=== PATIENT | male | born 1990 | race Caucasian/White ===

== ENCOUNTER 2020-02-14 12:40 | Outpatient (CLI) | payer BC, SELFPAY ==
[2020-02-14 13:39] LABS: Basophils % 0.4 %; Eosinophils % 0.7 %; Hematocrit 43.4 % (42.0-52.0); Hemoglobin 14.5 g/dL (11.7-16.6); Lymphocytes # 1.7 10^3/uL (0.8-4.8); Lymphocytes % 30.1 %; Mean Corpuscular HGB Conc 33.4 g/dL (30.0-36.0); Mean Corpuscular Hemoglobin 31.7 pg (28.0-34.0); Mean Platelet Volume 9.8 fL (7.4-10.4); Monocytes # 0.3 10^3/uL (0.2-0.9); Monocytes % 5.4 %; Neutrophils # 3.52 10^3/uL (1.8-7.7); Neutrophils % 62.9 %; Nucleated Red Blood Cells % 0 %; Platelet Count 214 10^3/cmm (130-400); Red Blood Count 4.57 10^6/uL (4.1-5.3); Red Cell Distribution Width 12.3 % (12.1-15.1); White Blood Count 5.6 10^3/uL (4.0-10.0)
[2020-02-14 14:08] LABS: Alanine Aminotransferase 61 U/L (0-41); Albumin Level 4.4 g/dL (3.5-5.2); Alkaline Phosphatase 66 IU/L (40-130); Anion Gap 16.1 (5-19); Aspartate Amino Transferase 33 U/L (0-40); Blood Urea Nitrogen 11 mg/dL (6-20); Calcium 9.7 mg/dL (8.5-10.5); Carbon Dioxide 25 mmol/L (22-29); Chloride 102 mmol/L (98-107); Chol HDL Ratio 4.61 mg/dL (1.0-5.00); Cholesterol 166 mg/dL (0-200); Glomerular Filtration Rate 78.1 mL/min (90-130); Glucose 98 mg/dL (65-115); HDL Cholesterol 36 mg/dL (60-100); LDL Cholesterol Calculated 89 mg/dL (50-129); LDL HDL Ratio 2.47 RATIO (0.00-3.22); Lactate Dehydrogenase 194 U/L (135-225); Magnesium 2.2 mg/dL (1.7-2.3); Osmolality Calculated 284 mOsm/kg (285-295); Potassium 4.1 mmol/L (3.5-5.1); Sodium 139 mmol/L (136-145); Testosterone Total 186.5 ng/dL (249-836); Thyroid Stimulating Hormone 0.98 uIU/mL (0.27-4.20); Total Bilirubin 0.4 mg/dL (0.15-1.2); Total Protein 7.4 g/dL (6.6-8.7); Triglycerides 205 mg/dL (0-150)
[2020-02-14 14:27] LABS: 25 Hydroxy Vitamin D 42 ng/mL (30-100); Vitamin B12 448 pg/mL (232-1245)
[2020-02-14 14:29] LABS: Ferritin 443 ng/mL (30-400); Folate Level > 20.0 ng/mL (4.5-32.2)
== END 2020-02-14 12:41 | disposition home or self-care (01) ==
LOC: LAB 12:41
PROVIDERS: PCP Nurse Practitioner Family; Visit Provider Nurse Practitioner Family
DX: R53.83 Other fatigue (principal); I10 Essential (primary) hypertension; R20.2 Paresthesia of skin; E55.9 Vitamin D deficiency, unspecified; R63.5 Abnormal weight gain; R10.9 Unspecified abdominal pain; M79.10 Myalgia, unspecified site
CPT/HCPCS: 80053; 80061; 82248; 82306; 82607; 82728; 82746; 83615; 83735; 84403; 84443; 85025

== ENCOUNTER 2020-02-20 17:17 | Outpatient (CLI) | payer BC, SELFPAY ==
[2020-02-20 18:28] LABS: Follicle Stimulating Hormone 2.6 mIU/mL (1.5-12.4); Luteinizing Hormone 2.6 mIU/mL (1.7-8.6); Prolactin 14.61 ng/mL (4.0-15.2)
== END 2020-02-20 17:18 | disposition home or self-care (01) ==
LOC: LAB 17:20
PROVIDERS: PCP Nurse Practitioner Family; Visit Provider Nurse Practitioner Family
DX: E29.1 Testicular hypofunction (principal)
CPT/HCPCS: 36415; 83001; 83002; 84146

== ENCOUNTER → 2020-04-14 10:04 | Outpatient (BNVA) | payer BC, SELFPAY | PROVIDERS: PCP Nurse Practitioner Family; Visit Provider Internal Medicine Endocrinology, Diabetes & Metabolism | DX: Z11.59 Encounter for screening for other viral diseases (principal) | CPT/HCPCS: 84402; 84403 ==

== ENCOUNTER 2020-12-04 09:06 | Outpatient (CLI) | payer BC, SELFPAY ==
[2020-12-04 09:31] LABS: Basophils % 0.5 %; Eosinophils # 0.2 10^3/uL (0.0-0.8); Eosinophils % 2.6 %; Hematocrit 49.9 % (42.0-52.0); Hemoglobin 17.1 g/dL (11.7-16.6); Lymphocytes # 1.7 10^3/uL (0.8-4.8); Lymphocytes % 28.1 %; Mean Corpuscular HGB Conc 34.3 g/dL (30.0-36.0); Mean Corpuscular Hemoglobin 31.1 pg (28.0-34.0); Mean Corpuscular Volume 90.7 fL (80-94); Mean Platelet Volume 9.3 fL (7.4-10.4); Monocytes # 0.6 10^3/uL (0.2-0.9); Monocytes % 8.9 %; Neutrophils % 59.6 %; Nucleated Red Blood Cells % 0 %; Platelet Count 197 10^3/cmm (130-400); Red Cell Distribution Width 11.9 % (12.1-15.1); White Blood Count 6.2 10^3/uL (4.0-10.0)
[2020-12-04 10:11] LABS: Free T4 Free Thyroxine 1.09 ng/dL (0.82-1.77); Testosterone Total 54.1 ng/dL (249-836); Thyroid Stimulating Hormone 1.58 uIU/mL (0.27-4.20)
== END 2020-12-04 09:07 | disposition home or self-care (01) ==
PROVIDERS: PCP Nurse Practitioner Family; Visit Provider Nurse Practitioner Family
DX: E29.1 Testicular hypofunction (principal); R79.89 Other specified abnormal findings of blood chemistry
CPT/HCPCS: 36415; 84403; 84439; 84443; 85025

== ENCOUNTER 2021-05-29 10:57 | Outpatient (CLI) | payer BC, SELFPAY ==
[2021-05-29 11:34] LABS: Basophils % 0.6 %; Eosinophils # 0.1 10^3/uL (0.0-0.8); Eosinophils % 1.6 %; Hemoglobin 17.1 g/dL (11.7-16.6); Lymphocytes # 2.6 10^3/uL (0.8-4.8); Lymphocytes % 36.1 %; Mean Corpuscular HGB Conc 33.5 g/dL (30.0-36.0); Mean Corpuscular Volume 92.4 fl (80-94); Mean Platelet Volume 9.3 fL (7.4-10.4); Monocytes # 0.5 10^3/uL (0.2-0.9); Monocytes % 7.1 %; Neutrophils # 3.83 10^3/uL (1.8-7.7); Neutrophils % 54.2 %; Nucleated Red Blood Cells % 0 %; Platelet Count 179 10^3/cmm (130-400); Red Blood Count 5.52 10^6/uL (4.1-5.3); Red Cell Distribution Width 12.2 % (12.1-15.1); White Blood Count 7.1 10^3/uL (4.0-10.0)
[2021-05-29 12:01] LABS: Anion Gap 19.1 (5-19); Blood Urea Nitrogen 13 mg/dL (6-20); Calcium 8.7 mg/dL (8.5-10.5); Carbon Dioxide 20 mmol/L (22-29); Chloride 104 mmol/L (98-107); Free T4 Free Thyroxine 1.06 ng/dL (0.82-1.77); Glomerular Filtration Rate 97.8 mL/min (90-130); Glucose 104 mg/dL (65-115); Osmolality Calculated 288 mOsm/kg (285-295); Potassium 4.1 mmol/L (3.5-5.1); Sodium 139 mmol/L (136-145); Testosterone Total 170.4 ng/dL (249-836); Thyroid Stimulating Hormone 2.45 uIU/mL (0.27-4.20)
[2021-05-29 12:19] LABS: Cortisol Random 4.03 ug/dL (2.47-19.5)
== END 2021-05-29 10:58 | disposition home or self-care (01) ==
PROVIDERS: PCP Nurse Practitioner Family; Visit Provider Nurse Practitioner Family
DX: R79.89 Other specified abnormal findings of blood chemistry (principal); E29.1 Testicular hypofunction
CPT/HCPCS: 80048; 82533; 84403; 84439; 84443; 85025

== ENCOUNTER 2022-07-07 09:05 | Oncology outpatient (recurring) (ONCR) | payer OTHER, SELFPAY ==
[2022-07-07 11:07] LABS: Basophils % 0.7 %; Eosinophils # 0.2 10^3/uL (0.0-0.8); Eosinophils % 3.3 %; Hematocrit 49.7 % (42.0-52.0); Hemoglobin 16.6 g/dL (11.7-16.6); Lymphocytes # 1.7 10^3/uL (0.8-4.8); Lymphocytes % 30.5 %; Mean Corpuscular HGB Conc 33.4 g/dL (30.0-36.0); Mean Corpuscular Hemoglobin 31.7 pg (28.0-34.0); Mean Corpuscular Volume 94.8 fl (80-94); Monocytes # 0.4 10^3/uL (0.2-0.9); Monocytes % 6.8 %; Neutrophils # 3.13 10^3/uL (1.8-7.7); Nucleated Red Blood Cells % 0 %; Platelet Count 182 10^3/cmm (130-400); Red Blood Count 5.24 10^6/uL (4.1-5.3); Red Cell Distribution Width 12.4 % (12.1-15.1); White Blood Count 5.4 10^3/uL (4.0-10.0)
[2022-07-07 11:10] LABS: Erythrocyte Sedimentation Rate 33 mm/hr (0-10)
[2022-07-07 11:16] LABS: LAB Peripheral Smear Sent for Review
[2022-07-07 11:29] LABS: Alanine Aminotransferase 82 U/L (0-41); Albumin Level 4.4 g/dL (3.5-5.2); Alkaline Phosphatase 84 U/L (40-130); Blood Urea Nitrogen 12 mg/dL (6-20); C Reactive Protein 22.6 mg/L (0.0-4.9); Calcium 10.2 mg/dL (8.5-10.5); Carbon Dioxide 23 mmol/L (22-29); Chloride 102 mmol/L (98-107); Ferritin 903 ng/mL (30-400); Globulin 3.8 g/dL (1.3-4.6); Glomerular Filtration Rate 110.7 mL/min (90-130); Glucose 162 mg/dL (65-115); Iron 123 ug/dL (59-158); Osmolality Calculated 291 mOsm/kg (285-295); Sodium 139 mmol/L (136-145); Total Bilirubin 0.7 mg/dL (0.15-1.2); Total Protein 8.2 g/dL (6.6-8.7)
[2022-07-07 11:30] LABS: Anion Gap 18.1 (5-19); Percent Saturation 44.4 % (20-50); Potassium 4.1 mmol/L (3.5-5.1); Total Iron Binding Capacity 277 mcg/dl; Unsaturated Iron Binding 154 ug/dL (112-347)
[2022-07-07 11:44] LABS: Vitamin B12 647 pg/mL (232-1245)
[2022-07-07 12:01] LABS: Aspartate Amino Transferase 78 U/L (0-40)
[2022-07-08 15:25] LABS: Anti-Nuclear Antibody Screen NEGATIVE (NEGATIVE)
[2022-07-08 17:30] LABS: Erythropoietin 17.7 mIU/mL (2.6-18.5)
[2022-07-17 16:05] LABS: CALR Exon 9 Mutation NOT DETECTED (NOT DETECTED); CSF3R Exon 14/17 Mutation NOT DETECTED (NOT DETECTED); JAK2 Exon 12 Mutation NOT DETECTED (NOT DETECTED); JAK2 V617 Block Specimen ID NG; JAK2 V617 Clinical Indication NG; JAK2 V617 Mutation NOT DETECTED (NOT DETECTED); JAK2 V617 Specimen Source BLOOD; MPL Exon 12 Mutation NOT DETECTED (NOT DETECTED)
== END 2022-07-19 23:59 | disposition home or self-care (01) ==
PROVIDERS: PCP Nurse Practitioner Family; Visit Provider Internal Medicine Medical Oncology
DX: R79.89 Other specified abnormal findings of blood chemistry (principal); R71.8 Other abnormality of red blood cells; R94.5 Abnormal results of liver function studies
CPT/HCPCS: 36415; 80053; 81219; 81256; 81270; 81339; 81403; 81479; 82607; 82668; 82728; 83540; 83550; 85025; 85651; 86038; 86140

== ENCOUNTER 2022-07-26 10:39 | Outpatient (CLI) | payer OTHER, SELFPAY ==
--- NOTE | 2022-07-26 11:45 | MR_ITS ---
WS: [id number] MRI BRAIN WITH AND WITHOUT CONTRAST HISTORY: fatigue, concern for possible seizures, weight gain and possible seizures. COMPARISON: None available. TECHNIQUE: Multiplanar imaging performed through the brain with MultiHance 20 ml's IV. Additional hig h-resolution images of the temporal lobes. No acute infarcts are seen. Mays-white matter differentiation is well preserved. Symmetric appearance of the hippocampal formations. No asymmetry or sclerosis. No atrophy. No susceptibility artifacts or prior lacunar infarcts. Ventricles and extra-axial spaces are normal. Clivus and pituitary gland are normal. No pituitary enlargement or abnormal enhancement. Visualized posterior fossa and brainstem are also normal. Postcontrast images are negative for masses or vascular malformations. Dural venous sinuses are normal. Paranasal sinuses: Well aerated with no significant disease. Mastoid air cells: Normal. Calvarium and scalp: Normal. MR/MR head wo/w con [id number] IMPRESSION: 1. No evidence for acute infarct. 2. Hippocampal formations are normal. 3. Normal appearance of the pituitary gland. No enlargement. 4. No prior infarct or hemorrhage.
[2022-07-26] MEDS: gadobenate dimeglumine 20 mL vial IV (12:17)
[2022-08-01 13:34] LABS: Leukemia Profile (BBPL) See Report; Lymphoma Profile (BBPL) See Report
== END 2022-07-26 10:40 | disposition home or self-care (01) ==
PROVIDERS: PCP Nurse Practitioner Family; Visit Provider Internal Medicine Medical Oncology
DX: R55 Syncope and collapse (principal); S09.90XA Unspecified injury of head, initial encounter; R53.83 Other fatigue; D72.820 Lymphocytosis (symptomatic); X58.XXXA Exposure to other specified factors, initial encounter
CPT/HCPCS: 36415; 70553; 88184; 88185; A9577

== ENCOUNTER 2022-09-27 18:02 | Outpatient (CLI) | payer OTHER, SELFPAY ==
[2022-09-27 18:42] LABS: Basophils % 0.5 %; Eosinophils # 0.1 10^3/uL (0.0-0.8); Eosinophils % 1.8 %; Hematocrit 53.6 % (42.0-52.0); Hemoglobin 17.1 g/dL (11.7-16.6); Lymphocytes # 1.7 10^3/uL (0.8-4.8); Lymphocytes % 27.6 %; Mean Corpuscular HGB Conc 31.9 g/dL (30.0-36.0); Mean Corpuscular Hemoglobin 30.1 pg (28.0-34.0); Mean Corpuscular Volume 94.4 fl (80-94); Mean Platelet Volume 9.5 fL (7.4-10.4); Monocytes # 0.3 10^3/uL (0.2-0.9); Neutrophils % 64.8 %; Nucleated Red Blood Cells % 0 %; Platelet Count 170 10^3/cmm (130-400); Red Blood Count 5.68 10^6/uL (4.1-5.3); Red Cell Distribution Width 12.4 % (12.1-15.1)
[2022-09-27 19:08] LABS: Erythrocyte Sedimentation Rate 8 mm/hr (0-10)
[2022-09-27 19:14] LABS: Alanine Aminotransferase 37 U/L (0-41); Albumin Level 4.3 g/dL (3.5-5.2); Alkaline Phosphatase 59 U/L (40-130); Anion Gap 19.6 (5-19); Aspartate Amino Transferase 30 U/L (0-40); Blood Urea Nitrogen 12 mg/dL (6-20); C Reactive Protein 21.9 mg/L (0.0-4.9); Calcium 9.2 mg/dL (8.5-10.5); Carbon Dioxide 24 mmol/L (22-29); Chloride 101 mmol/L (98-107); Creatine Phosphokinase 64 U/L (39-308); Ferritin 250 ng/mL (30-400); Globulin 3.2 g/dL (1.3-4.6); Glomerular Filtration Rate 76.6 mL/min (90-130); Glucose 88 mg/dL (65-115); Iron 60 ug/dL (59-158); Osmolality Calculated 291 mOsm/kg (285-295); Percent Saturation 20.4 % (20-50); Potassium 3.6 mmol/L (3.5-5.1); Sodium 141 mmol/L (136-145); Total Bilirubin 0.5 mg/dL (0.15-1.2); Total Iron Binding Capacity 293 mcg/dl; Total Protein 7.5 g/dL (6.6-8.7); Unsaturated Iron Binding 233 ug/dL (112-347)
[2022-09-27 19:57] LABS: LAB Peripheral Smear Sent for Review
== END 2022-09-27 18:03 | disposition home or self-care (01) ==
PROVIDERS: PCP Nurse Practitioner Family; Visit Provider Internal Medicine Medical Oncology
DX: D72.820 Lymphocytosis (symptomatic) (principal); M79.10 Myalgia, unspecified site
CPT/HCPCS: 36415; 80053; 82085; 82550; 82728; 83540; 83550; 85025; 85651; 86140

== ENCOUNTER 2022-09-28 18:05 | Outpatient (CLI) | payer OTHER, SELFPAY ==
[2022-09-30 12:44] LABS: Aldolase 5.7 U/L (< OR = 8.1)
== END 2022-09-28 18:06 | disposition home or self-care (01) ==
LOC: LAB 18:07
PROVIDERS: PCP Nurse Practitioner Family; Visit Provider Internal Medicine Medical Oncology
DX: Z01.89 Encounter for other specified special examinations (principal)
CPT/HCPCS: 36415; 82085

== ENCOUNTER 2022-11-06 08:51 | Outpatient (CLI) | payer OTHER, SELFPAY ==
[2022-11-06 09:55] LABS: Estmated Average Glucose 108; Hemoglobin A1C 5.4 % (4.0-6.0)
[2022-11-06 09:58] LABS: Basophils % 0.2 %; Eosinophils # 0.1 10^3/uL (0.0-0.8); Eosinophils % 1.6 %; Hematocrit 56.8 % (42.0-52.0); Hemoglobin 18.5 g/dL (11.7-16.6); Lymphocytes # 1.9 10^3/uL (0.8-4.8); Lymphocytes % 33.3 %; Mean Corpuscular HGB Conc 32.6 g/dL (30.0-36.0); Mean Corpuscular Hemoglobin 29.6 pg (28.0-34.0); Mean Corpuscular Volume 90.9 fl (80-94); Mean Platelet Volume 9.6 fL (7.4-10.4); Monocytes # 0.4 10^3/uL (0.2-0.9); Monocytes % 6.3 %; Neutrophils # 3.24 10^3/uL (1.8-7.7); Neutrophils % 58.2 %; Nucleated Red Blood Cells % 0 %; Platelet Count 178 10^3/cmm (130-400); Red Blood Count 6.25 10^6/uL (4.1-5.3); Red Cell Distribution Width 12.8 % (12.1-15.1); White Blood Count 5.6 10^3/uL (4.0-10.0)
[2022-11-06 10:05] LABS: Alanine Aminotransferase 44 U/L (0-41); Albumin Level 4.2 g/dL (3.5-5.2); Alkaline Phosphatase 54 U/L (40-130); Aspartate Amino Transferase 28 U/L (0-40); Blood Urea Nitrogen 16 mg/dL (6-20); Calcium 9.4 mg/dL (8.5-10.5); Carbon Dioxide 21 mmol/L (22-29); Chloride 105 mmol/L (98-107); Chol HDL Ratio 6.63 mg/dL (1.0-5.00); Cholesterol 159 mg/dL (0-200); Free T4 Free Thyroxine 1.12 ng/dL (0.82-1.77); Globulin 3.5 g/dL (1.3-4.6); Glomerular Filtration Rate 69.3 mL/min (90-130); Glucose 96 mg/dL (65-115); HDL Cholesterol 24 mg/dL (60-100); LDL Cholesterol Calculated 88 mg/dL (50-129); LDL HDL Ratio 3.67 RATIO (0.00-3.22); Osmolality Calculated 285 mOsm/kg (285-295); Sodium 137 mmol/L (136-145); Testosterone Total 648.9 ng/dL (249-836); Thyroid Stimulating Hormone 6.41 uIU/mL (0.27-4.20); Total Bilirubin 0.4 mg/dL (0.15-1.2); Total Protein 7.7 g/dL (6.6-8.7); Triglycerides 236 mg/dL (0-150)
[2022-11-06 11:58] LABS: Creatinine Urine, Random 53 mg/dL (39-259); Microalbum Creatinine Ratio Ur 19 mg/dL (0-20); Microalbumin Random Urine 1 ug/dL (0-20)
[2022-11-08 01:50] LABS: T3 Total 129 ng/dL (76-181)
== END 2022-11-06 08:52 | disposition home or self-care (01) ==
LOC: LAB 09:01
PROVIDERS: PCP Nurse Practitioner Family; Visit Provider Internal Medicine
DX: E78.2 Mixed hyperlipidemia (principal); Z79.890 Hormone replacement therapy; E11.8 Type 2 diabetes mellitus with unspecified complications; E29.1 Testicular hypofunction
CPT/HCPCS: 36415; 80053; 80061; 82044; 83036; 84403; 84439; 84443; 84480; 85025

== ENCOUNTER 2022-11-11 09:27 | Oncology outpatient (recurring) (ONCR) | payer OTHER, SELFPAY ==
[2022-11-11 09:33] VITALS: BP 124/76; PULSE 89; RESP 16; TEMP 36.3; O2SAT 94
[2022-11-14 13:57] LABS: Basophils % 0.4 %; Eosinophils # 0.2 10^3/uL (0.0-0.8); Eosinophils % 2.2 %; Hematocrit 52.2 % (42.0-52.0); Hemoglobin 17.3 g/dL (11.7-16.6); Lymphocytes # 1.9 10^3/uL (0.8-4.8); Lymphocytes % 25.1 %; Mean Corpuscular HGB Conc 33.1 g/dL (30.0-36.0); Mean Corpuscular Hemoglobin 29.8 pg (28.0-34.0); Mean Corpuscular Volume 89.8 fl (80-94); Mean Platelet Volume 9.2 fL (7.4-10.4); Monocytes # 0.5 10^3/uL (0.2-0.9); Neutrophils # 5.02 10^3/uL (1.8-7.7); Neutrophils % 65.9 %; Nucleated Red Blood Cells % 0 %; Platelet Count 211 10^3/cmm (130-400); Red Blood Count 5.81 10^6/uL (4.1-5.3); Red Cell Distribution Width 13.1 % (12.1-15.1); White Blood Count 7.6 10^3/uL (4.0-10.0)
== END 2022-11-16 23:59 | disposition home or self-care (01) ==
PROVIDERS: Internal Medicine; PCP Nurse Practitioner Family; Visit Provider Internal Medicine Medical Oncology
DX: D75.1 Secondary polycythemia (principal)
CPT/HCPCS: 36415; 85025; 99195

== ENCOUNTER 2022-11-27 19:32 | Outpatient (CLI) | payer OTHER, SELFPAY ==
[2022-11-27 19:55] LABS: Basophils % 0.5 %; Eosinophils # 0.2 10^3/uL (0.0-0.8); Eosinophils % 2.7 %; Hematocrit 49.5 % (42.0-52.0); Hemoglobin 16.2 g/dL (11.7-16.6); Lymphocytes # 2.1 10^3/uL (0.8-4.8); Lymphocytes % 32.3 %; Mean Corpuscular HGB Conc 32.7 g/dL (30.0-36.0); Mean Corpuscular Hemoglobin 29.3 pg (28.0-34.0); Mean Corpuscular Volume 89.5 fl (80-94); Mean Platelet Volume 9.2 fL (7.4-10.4); Monocytes # 0.3 10^3/uL (0.2-0.9); Monocytes % 5.3 %; Neutrophils # 3.75 10^3/uL (1.8-7.7); Neutrophils % 58.9 %; Nucleated Red Blood Cells % 0 %; Platelet Count 196 10^3/cmm (130-400); Red Blood Count 5.53 10^6/uL (4.1-5.3); Red Cell Distribution Width 13.1 % (12.1-15.1); White Blood Count 6.4 10^3/uL (4.0-10.0)
[2022-11-27 21:18] LABS: Cortisol Random 1.05 ug/dL (2.47-19.5)
== END 2022-11-27 19:33 | disposition home or self-care (01) ==
PROVIDERS: Internal Medicine Medical Oncology; PCP Nurse Practitioner Family; Visit Provider Internal Medicine
DX: D75.1 Secondary polycythemia (principal); E23.7 Disorder of pituitary gland, unspecified; E11.65 Type 2 diabetes mellitus with hyperglycemia; E78.2 Mixed hyperlipidemia; R63.5 Abnormal weight gain; R79.89 Other specified abnormal findings of blood chemistry; Z79.890 Hormone replacement therapy
CPT/HCPCS: 36415; 82533; 85025

== ENCOUNTER 2022-12-01 12:30 | Oncology outpatient (recurring) (ONCR) | payer OTHER, SELFPAY ==
[2022-11-18 11:14] LABS: Basophils % 0.5 %; Eosinophils # 0.2 10^3/uL (0.0-0.8); Eosinophils % 2.7 %; Hematocrit 50.6 % (42.0-52.0); Hemoglobin 16.6 g/dL (11.7-16.6); Lymphocytes # 1.6 10^3/uL (0.8-4.8); Lymphocytes % 28.2 %; Mean Corpuscular HGB Conc 32.8 g/dL (30.0-36.0); Mean Corpuscular Hemoglobin 29.5 pg (28.0-34.0); Mean Platelet Volume 9.1 fL (7.4-10.4); Monocytes # 0.3 10^3/uL (0.2-0.9); Monocytes % 6.1 %; Neutrophils # 3.46 10^3/uL (1.8-7.7); Neutrophils % 62.3 %; Nucleated Red Blood Cells % 0 %; Platelet Count 193 10^3/cmm (130-400); Red Blood Count 5.62 10^6/uL (4.1-5.3); White Blood Count 5.6 10^3/uL (4.0-10.0)
[2022-11-18 12:30] VITALS: BP 143/84; PULSE 90; RESP 16; TEMP 36.6; O2SAT 96
--- NOTE | 2022-11-18 13:28 | PC.NURSE ---
Patient came in today for CBC and possible phelbotomy. Lab results shown to Dr. Quan and her gave VO to take off [address] Quan also gave VO for f/u visit in 2 weeks with CBC, CMP, TIBC, and Fertin labs to be drawn and possible phelbotomy if needed. Lab orders put in by this nurse. Patient given appt to return on 12/01/22.
[2022-12-01 13:52] LABS: Basophils % 0.6 %; Eosinophils # 0.3 10^3/uL (0.0-0.8); Eosinophils % 3.8 %; Hematocrit 49.4 % (42.0-52.0); Hemoglobin 16.4 g/dL (11.7-16.6); Lymphocytes # 2.1 10^3/uL (0.8-4.8); Lymphocytes % 32.2 %; Mean Corpuscular HGB Conc 33.2 g/dL (30.0-36.0); Mean Corpuscular Hemoglobin 29.3 pg (28.0-34.0); Mean Corpuscular Volume 88.2 fl (80-94); Mean Platelet Volume 9.1 fL (7.4-10.4); Monocytes # 0.4 10^3/uL (0.2-0.9); Monocytes % 6.6 %; Neutrophils # 3.69 10^3/uL (1.8-7.7); Neutrophils % 56.6 %; Nucleated Red Blood Cells % 0 %; Platelet Count 226 10^3/cmm (130-400); Red Cell Distribution Width 13.2 % (12.1-15.1); White Blood Count 6.5 10^3/uL (4.0-10.0)
[2022-12-01 14:21] LABS: Alanine Aminotransferase 47 U/L (0-41); Albumin Level 4.6 g/dL (3.5-5.2); Alkaline Phosphatase 65 U/L (40-130); Aspartate Amino Transferase 25 U/L (0-40); Blood Urea Nitrogen 16 mg/dL (6-20); Calcium 8.6 mg/dL (8.5-10.5); Carbon Dioxide 22 mmol/L (22-29); Chloride 105 mmol/L (98-107); Ferritin 299 ng/mL (30-400); Globulin 2.9 g/dL (1.3-4.6); Glomerular Filtration Rate 69.3 mL/min (90-130); Glucose 121 mg/dL (65-115); Iron 79 ug/dL (59-158); Osmolality Calculated 290 mOsm/kg (285-295); Percent Saturation 29.6 % (20-50); Sodium 139 mmol/L (136-145); Total Bilirubin 0.3 mg/dL (0.15-1.2); Total Iron Binding Capacity 266 mcg/dl; Total Protein 7.5 g/dL (6.6-8.7); Unsaturated Iron Binding 187 ug/dL (112-347)
[2022-12-01 14:23] LABS: Anion Gap 16.2 (5-19); Potassium 4.2 mmol/L (3.5-5.1)
[2022-12-01 15:55] VITALS: BP 125/81; PULSE 92; RESP 18; TEMP 37.1; O2SAT 95
== END 2022-12-16 23:59 | disposition home or self-care (01) ==
PROVIDERS: PCP Nurse Practitioner Family; Visit Provider Internal Medicine Medical Oncology
DX: R79.89 Other specified abnormal findings of blood chemistry (principal); D75.1 Secondary polycythemia
CPT/HCPCS: 36415; 80053; 82728; 83540; 83550; 85025; 99195

== ENCOUNTER 2023-01-02 13:45 | Oncology outpatient (recurring) (ONCR) | payer OTHER, SELFPAY ==
[2023-01-02 13:46] VITALS: BP 153/91; PULSE 95; RESP 18; TEMP 35.8; O2SAT 96
[2023-01-02 14:08] LABS: Basophils % 0.4 %; Eosinophils # 0.2 10^3/uL (0.0-0.8); Eosinophils % 3.1 %; Hematocrit 48.9 % (42.0-52.0); Hemoglobin 16.2 g/dL (11.7-16.6); Lymphocytes # 2.3 10^3/uL (0.8-4.8); Lymphocytes % 41.3 %; Mean Corpuscular HGB Conc 33.1 g/dL (30.0-36.0); Mean Corpuscular Hemoglobin 29.6 pg (28.0-34.0); Mean Corpuscular Volume 89.4 fl (80-94); Mean Platelet Volume 9.2 fL (7.4-10.4); Monocytes # 0.4 10^3/uL (0.2-0.9); Monocytes % 7.5 %; Neutrophils % 47.3 %; Nucleated Red Blood Cells % 0 %; Platelet Count 196 10^3/cmm (130-400); Red Blood Count 5.47 10^6/uL (4.1-5.3); Red Cell Distribution Width 13.5 % (12.1-15.1); White Blood Count 5.5 10^3/uL (4.0-10.0)
[2023-01-02 14:26] LABS: Alanine Aminotransferase 49 U/L (0-41); Albumin Level 4.2 g/dL (3.5-5.2); Alkaline Phosphatase 58 U/L (40-130); Aspartate Amino Transferase 34 U/L (0-40); Blood Urea Nitrogen 14 mg/dL (6-20); Calcium 8.8 mg/dL (8.5-10.5); Carbon Dioxide 23 mmol/L (22-29); Chloride 103 mmol/L (98-107); Ferritin 159 ng/mL (30-400); Globulin 2.9 g/dL (1.3-4.6); Glomerular Filtration Rate 69.3 mL/min (90-130); Glucose 93 mg/dL (65-115); Iron 67 ug/dL (59-158); Osmolality Calculated 280 mOsm/kg (285-295); Sodium 135 mmol/L (136-145); Total Bilirubin 0.4 mg/dL (0.15-1.2); Total Iron Binding Capacity 291 mcg/dl; Total Protein 7.1 g/dL (6.6-8.7); Unsaturated Iron Binding 224 ug/dL (112-347)
[2023-01-02 14:36] LABS: Anion Gap 13.1 (5-19); Potassium 4.1 mmol/L (3.5-5.1)
[2023-01-02 15:23] VITALS: BP 129/79; PULSE 56; RESP 16; TEMP 36.1; O2SAT 95
== END 2023-01-16 23:59 | disposition home or self-care (01) ==
PROVIDERS: PCP Nurse Practitioner Family; Visit Provider Internal Medicine Medical Oncology
DX: D75.1 Secondary polycythemia (principal)
CPT/HCPCS: 80053; 82728; 83540; 83550; 85025; 99195

== ENCOUNTER 2023-01-31 08:48 | Oncology outpatient (recurring) (ONCR) | payer OTHER, SELFPAY ==
[2023-01-31 08:50] VITALS: BP 117/78; PULSE 90; RESP 18; TEMP 36.6; O2SAT 97
[2023-01-31 09:13] LABS: Basophils % 0.6 %; Eosinophils # 0.2 10^3/uL (0.0-0.8); Eosinophils % 3.9 %; Hematocrit 50.5 % (42.0-52.0); Hemoglobin 17.1 g/dL (11.7-16.6); Lymphocytes % 36.2 %; Mean Corpuscular HGB Conc 33.9 g/dL (30.0-36.0); Mean Corpuscular Hemoglobin 29.5 pg (28.0-34.0); Mean Corpuscular Volume 87.1 fl (80-94); Mean Platelet Volume 9.6 fL (7.4-10.4); Monocytes # 0.3 10^3/uL (0.2-0.9); Monocytes % 4.6 %; Neutrophils # 2.94 10^3/uL (1.8-7.7); Neutrophils % 54.5 %; Nucleated Red Blood Cells % 0 %; Platelet Count 217 10^3/cmm (130-400); Red Cell Distribution Width 12.7 % (12.1-15.1); White Blood Count 5.4 10^3/uL (4.0-10.0)
[2023-01-31 09:48] LABS: Alanine Aminotransferase 41 U/L (0-41); Albumin Level 4.4 g/dL (3.5-5.2); Alkaline Phosphatase 59 U/L (40-130); Aspartate Amino Transferase 28 U/L (0-40); Blood Urea Nitrogen 13 mg/dL (6-20); Calcium 9.2 mg/dL (8.5-10.5); Carbon Dioxide 27 mmol/L (22-29); Chloride 103 mmol/L (98-107); Globulin 3.2 g/dL (1.3-4.6); Glomerular Filtration Rate 69.3 mL/min (90-130); Glucose 111 mg/dL (65-115); Osmolality Calculated 289 mOsm/kg (285-295); Prostate Specific Antigen Scr 1.27 ng/mL (0-4); Sodium 139 mmol/L (136-145); Testosterone Total 422.1 ng/dL (249-836); Thyroid Stimulating Hormone 2.58 uIU/mL (0.27-4.20); Total Bilirubin 0.5 mg/dL (0.15-1.2); Total Protein 7.6 g/dL (6.6-8.7)
[2023-01-31 09:54] LABS: Anion Gap 13.2 (5-19); Potassium 4.2 mmol/L (3.5-5.1)
[2023-01-31 09:55] LABS: Ferritin 130 ng/mL (30-400); Iron 66 ug/dL (59-158); Percent Saturation 21.4 % (20-50); Total Iron Binding Capacity 308 mcg/dl; Unsaturated Iron Binding 242 ug/dL (112-347)
[2023-01-31 12:00] LABS: Cortisol Random 4.09 ug/dL (2.47-19.5)
[2023-01-31 12:33] VITALS: BP 123/78; PULSE 91; RESP 18; TEMP 36.6; O2SAT 98
--- NOTE | 2023-01-31 12:39 | PC.NURSE ---
patient came in for the lab and Dr Quan reviewed with the order to do phlebotomy 450ml with no issues noted post phlebotomy.mm
== END 2023-02-16 23:59 | disposition home or self-care (01) ==
PROVIDERS: Internal Medicine; PCP Nurse Practitioner Family; Visit Provider Internal Medicine Medical Oncology
DX: D75.1 Secondary polycythemia (principal); E29.1 Testicular hypofunction; R79.89 Other specified abnormal findings of blood chemistry; E78.2 Mixed hyperlipidemia; Z12.5 Encounter for screening for malignant neoplasm of prostate
CPT/HCPCS: 36415; 80053; 82533; 82728; 83540; 83550; 84403; 84439; 84443; 85025; 99195; G0103

== ENCOUNTER → 2023-02-23 13:46 | Day surgery (SDC) | payer OTHER, SELFPAY ==
[2023-02-23] MEDS: cosyntropin 0.25 mg SDV IVP (14:06)
[2023-02-23 14:12] VITALS: BP 103/84; PULSE 89; RESP 18; TEMP 35.9; O2SAT 95
[2023-02-23 15:00] LABS: Cosyntropin Baseline 6.11 mcg/dL
[2023-02-23 15:12] LABS: Cosyntropin 30 Minute 21.06 mcg/dL
[2023-02-23 16:11] LABS: Cosyntropin 1 Hour 23.09 mcg/dL
== END ==
LOC: GILAB 13:47
PROVIDERS: PCP Nurse Practitioner Family; Visit Provider Internal Medicine
DX: Z01.89 Encounter for other specified special examinations (principal)
CPT/HCPCS: 36415; 82533; 96374; J0834

== ENCOUNTER 2023-03-02 11:52 | Oncology outpatient (recurring) (ONCR) | payer OTHER, SELFPAY ==
[2023-03-02 12:58] VITALS: BP 123/76; PULSE 90; RESP 16; TEMP 36.9; O2SAT 96
[2023-03-02 13:19] LABS: Basophils % 0.6 %; Eosinophils # 0.2 10^3/uL (0.0-0.8); Eosinophils % 2.4 %; Hematocrit 49.4 % (37-53); Lymphocytes # 2.3 10^3/uL (0.8-4.8); Lymphocytes % 36.2 %; Mean Corpuscular HGB Conc 33.2 g/dL (30-55); Mean Corpuscular Hemoglobin 29.3 pg (27-33); Mean Corpuscular Volume 88.4 fl (82-101); Mean Platelet Volume 9.6 fL (7.4-10.4); Monocytes # 0.4 10^3/uL (0.2-0.9); Monocytes % 6.5 %; Neutrophils # 3.44 10^3/uL (1.8-7.7); Neutrophils % 54.1 %; Nucleated Red Blood Cells % 0 %; Platelet Count 213 10^3/cmm (157-399); Red Blood Count 5.59 10^6/uL (3.85-5.65); Red Cell Distribution Width 12.3 % (12.1-15.1); White Blood Count 6.35 10^3/uL (3.29-11.43)
[2023-03-02 13:29] LABS: Alanine Aminotransferase 37 U/L (0-41); Albumin Level 4.4 g/dL (3.5-5.2); Alkaline Phosphatase 51 U/L (40-130); Blood Urea Nitrogen 12 mg/dL (6-20); Carbon Dioxide 26 mmol/L (22-29); Chloride 104 mmol/L (98-107); Ferritin 83 ng/mL (30-400); Globulin 3.1 g/dL (1.3-4.6); Glomerular Filtration Rate 63.2 mL/min (90-130); Glucose 89 mg/dL (65-115); Iron 41 ug/dL (59-158); Osmolality Calculated 289 mOsm/kg (285-295); Sodium 140 mmol/L (136-145); Total Bilirubin 0.4 mg/dL (0.15-1.2); Total Protein 7.5 g/dL (6.6-8.7)
[2023-03-02 13:34] LABS: Anion Gap 14.4 (5-19); Aspartate Amino Transferase 31 U/L (0-40); Percent Saturation 12.7 % (20-50); Potassium 4.4 mmol/L (3.5-5.1); Total Iron Binding Capacity 321 mcg/dl; Unsaturated Iron Binding 280 ug/dL (112-347)
== END 2023-03-18 23:59 | disposition home or self-care (01) ==
PROVIDERS: PCP Nurse Practitioner Family; Visit Provider Internal Medicine Medical Oncology
DX: D75.1 Secondary polycythemia (principal)
CPT/HCPCS: 36415; 80053; 82728; 83540; 83550; 85025

== ENCOUNTER 2023-03-30 08:15 | Oncology outpatient (recurring) (ONCR) | payer OTHER, SELFPAY ==
[2023-03-30 09:01] LABS: Basophils % 0.6 %; Eosinophils # 0.1 10^3/uL (0.0-0.8); Eosinophils % 2.1 %; Hematocrit 55.1 % (37-53); Lymphocytes # 2.9 10^3/uL (0.8-4.8); Lymphocytes % 44.3 %; Mean Corpuscular HGB Conc 33.4 g/dL (30-55); Mean Corpuscular Hemoglobin 28.8 pg (27-33); Mean Corpuscular Volume 86.1 fl (82-101); Mean Platelet Volume 9.5 fL (7.4-10.4); Monocytes # 0.4 10^3/uL (0.2-0.9); Monocytes % 5.5 %; Neutrophils # 3.08 10^3/uL (1.8-7.7); Neutrophils % 47.3 %; Nucleated Red Blood Cells % 0 %; Platelet Count 210 10^3/cmm (157-399); Red Cell Distribution Width 12.5 % (12.1-15.1); White Blood Count 6.52 10^3/uL (3.29-11.43)
[2023-03-30 09:50] VITALS: BP 140/90; PULSE 68; RESP 16; TEMP 36.1; O2SAT 96
== END 2023-04-18 23:59 | disposition home or self-care (01) ==
PROVIDERS: PCP Nurse Practitioner Family; Visit Provider Internal Medicine Medical Oncology
DX: D75.1 Secondary polycythemia (principal); E83.110 Hereditary hemochromatosis
CPT/HCPCS: 36415; 85025; 99195

== ENCOUNTER 2023-04-27 14:05 | Oncology outpatient (recurring) (ONCR) | payer OTHER, SELFPAY ==
[2023-04-27 15:39] LABS: Basophils % 0.6 %; Eosinophils # 0.1 10^3/uL (0.0-0.8); Eosinophils % 2.2 %; Hematocrit 56.1 % (37-53); Lymphocytes # 2.3 10^3/uL (0.8-4.8); Lymphocytes % 35.1 %; Mean Corpuscular Hemoglobin 28.3 pg (27-33); Mean Corpuscular Volume 85.8 fl (82-101); Mean Platelet Volume 9.4 fL (7.4-10.4); Monocytes # 0.3 10^3/uL (0.2-0.9); Neutrophils # 3.65 10^3/uL (1.8-7.7); Neutrophils % 56.8 %; Nucleated Red Blood Cells % 0 %; Platelet Count 228 10^3/cmm (157-399); Red Blood Count 6.54 10^6/uL (3.85-5.65); Red Cell Distribution Width 12.9 % (12.1-15.1); White Blood Count 6.43 10^3/uL (3.29-11.43)
[2023-04-27 15:57] LABS: Alanine Aminotransferase 30 U/L (0-41); Albumin Level 4.6 g/dL (3.5-5.2); Alkaline Phosphatase 53 U/L (40-130); Anion Gap 14.4 (5-19); Aspartate Amino Transferase 21 U/L (0-40); Blood Urea Nitrogen 10 mg/dL (6-20); Calcium 9.5 mg/dL (8.5-10.5); Carbon Dioxide 24 mmol/L (22-29); Chloride 106 mmol/L (98-107); Globulin 2.9 g/dL (1.3-4.6); Glomerular Filtration Rate 69.3 mL/min (90-130); Glucose 102 mg/dL (65-115); Osmolality Calculated 289 mOsm/kg (285-295); Potassium 4.4 mmol/L (3.5-5.1); Sodium 140 mmol/L (136-145); Total Bilirubin 0.4 mg/dL (0.15-1.2); Total Protein 7.5 g/dL (6.6-8.7)
[2023-04-27 16:37] VITALS: BP 116/84; PULSE 91; RESP 16; TEMP 36.6; O2SAT 98
[2023-04-27 17:10] VITALS: BP 124/78; PULSE 88; RESP 18; TEMP 36.1; O2SAT 97
[2023-04-27 17:24] LABS: Ferritin 83 ng/mL (30-400); Iron 44 ug/dL (59-158); Percent Saturation 13.6 % (20-50); Total Iron Binding Capacity 322 mcg/dl; Unsaturated Iron Binding 278 ug/dL (112-347)
== END 2023-05-18 23:59 | disposition home or self-care (01) ==
LOC: ONCMED 14:06
PROVIDERS: Nurse Practitioner Family; PCP Nurse Practitioner Family; Visit Provider Internal Medicine Medical Oncology
DX: E83.110 Hereditary hemochromatosis; R71.8 Other abnormality of red blood cells; R53.83 Other fatigue
CPT/HCPCS: 80053; 82728; 83540; 83550; 85025; 99195

== ENCOUNTER 2023-06-01 11:49 | Oncology outpatient (recurring) (ONCR) | payer OTHER, SELFPAY ==
[2023-06-01 12:20] VITALS: BP 145/68; PULSE 101; RESP 16; TEMP 36.6; O2SAT 96
[2023-06-01 12:47] LABS: Basophils % 0.7 %; Eosinophils # 0.1 10^3/uL (0.0-0.8); Hematocrit 50.4 % (37-53); Lymphocytes # 1.8 10^3/uL (0.8-4.8); Lymphocytes % 40.3 %; Mean Corpuscular HGB Conc 33.5 g/dL (30-55); Mean Corpuscular Hemoglobin 28.4 pg (27-33); Mean Corpuscular Volume 84.6 fl (82-101); Mean Platelet Volume 9.7 fL (7.4-10.4); Monocytes # 0.3 10^3/uL (0.2-0.9); Neutrophils # 2.26 10^3/uL (1.8-7.7); Neutrophils % 49.3 %; Nucleated Red Blood Cells % 0 %; Platelet Count 280 10^3/cmm (157-399); Red Blood Count 5.96 10^6/uL (3.85-5.65); Red Cell Distribution Width 13.2 % (12.1-15.1); White Blood Count 4.57 10^3/uL (3.29-11.43)
[2023-06-01 13:28] LABS: Alanine Aminotransferase 41 U/L (0-41); Albumin Level 4.2 g/dL (3.5-5.2); Alkaline Phosphatase 63 U/L (40-130); Aspartate Amino Transferase 22 U/L (0-40); Blood Urea Nitrogen 14 mg/dL (6-20); Calcium 8.9 mg/dL (8.5-10.5); Carbon Dioxide 22 mmol/L (22-29); Chloride 109 mmol/L (98-107); Creatinine Clr Calc Pharmacy 148.6797; Ferritin 88 ng/mL (30-400); Globulin 2.7 g/dL (1.3-4.6); Glomerular Filtration Rate 85.5 mL/min (90-130); Glucose 99 mg/dL (65-115); Iron 58 ug/dL (59-158); Osmolality Calculated 293 mOsm/kg (285-295); Percent Saturation 19.8 % (20-50); Sodium 141 mmol/L (136-145); Total Bilirubin 0.5 mg/dL (0.15-1.2); Total Iron Binding Capacity 292 mcg/dl; Total Protein 6.9 g/dL (6.6-8.7); Unsaturated Iron Binding 234 ug/dL (112-347)
[2023-06-01 13:40] LABS: 25 Hydroxy Vitamin D 26 ng/mL (30-100)
== END 2023-06-18 23:59 | disposition home or self-care (01) ==
PROVIDERS: PCP Nurse Practitioner Family; Visit Provider Internal Medicine Medical Oncology
DX: E83.110 Hereditary hemochromatosis (principal); R71.8 Other abnormality of red blood cells; R53.83 Other fatigue; D75.1 Secondary polycythemia
CPT/HCPCS: 36415; 80053; 82306; 82728; 83540; 83550; 85025

== ENCOUNTER → 2023-06-23 09:09 | Outpatient (BNVA) | payer OTHER, SELFPAY | PROVIDERS: PCP Nurse Practitioner Family; Visit Provider Internal Medicine | DX: E78.2 Mixed hyperlipidemia (principal); E23.7 Disorder of pituitary gland, unspecified; R63.5 Abnormal weight gain; E11.9 Type 2 diabetes mellitus without complications; Z79.899 Other long term (current) drug therapy | CPT/HCPCS: 80053; 80061; 82043; 83036; 84403; 84439; 84443 ==

== ENCOUNTER 2023-07-13 15:33 | Oncology outpatient (recurring) (ONCR) | payer OTHER, SELFPAY ==
[2023-07-13 16:17] LABS: Basophils % 0.6 %; Eosinophils # 0.1 10^3/uL (0.0-0.8); Eosinophils % 2.5 %; Hematocrit 51.3 % (37-53); Lymphocytes # 2.1 10^3/uL (0.8-4.8); Lymphocytes % 44.1 %; Mean Corpuscular HGB Conc 33.9 g/dL (30-55); Mean Corpuscular Volume 85.5 fl (82-101); Mean Platelet Volume 9.6 fL (7.4-10.4); Monocytes # 0.3 10^3/uL (0.2-0.9); Neutrophils # 2.27 10^3/uL (1.8-7.7); Neutrophils % 46.8 %; Nucleated Red Blood Cells % 0 %; Platelet Count 194 10^3/cmm (157-399); White Blood Count 4.85 10^3/uL (3.29-11.43)
== END 2023-07-19 23:59 | disposition home or self-care (01) ==
LOC: ONCMED 15:34
PROVIDERS: PCP Nurse Practitioner Family; Visit Provider Internal Medicine Medical Oncology
DX: E83.110 Hereditary hemochromatosis (principal)
CPT/HCPCS: 36415; 85025

== ENCOUNTER 2023-08-24 12:06 | Oncology outpatient (recurring) (ONCR) | payer OTHER, SELFPAY ==
[2023-08-24 12:43] LABS: Basophils % 0.5 %; Eosinophils # 0.1 10^3/uL (0.0-0.8); Eosinophils % 0.9 %; Hematocrit 53.6 % (37-53); Lymphocytes # 1.9 10^3/uL (0.8-4.8); Lymphocytes % 34.7 %; Mean Corpuscular HGB Conc 34.3 g/dL (30-55); Mean Corpuscular Hemoglobin 29.8 pg (27-33); Mean Corpuscular Volume 86.7 fl (82-101); Mean Platelet Volume 9.7 fL (7.4-10.4); Monocytes # 0.3 10^3/uL (0.2-0.9); Monocytes % 5.6 %; Neutrophils # 3.21 10^3/uL (1.8-7.7); Neutrophils % 57.9 %; Nucleated Red Blood Cells % 0 %; Platelet Count 185 10^3/cmm (157-399); Red Blood Count 6.18 10^6/uL (3.85-5.65); Red Cell Distribution Width 13.5 % (12.1-15.1); White Blood Count 5.54 10^3/uL (3.29-11.43)
[2023-08-24 12:54] LABS: Estmated Average Glucose 97
[2023-08-24 13:27] LABS: 25 Hydroxy Vitamin D 32 ng/mL (30-100); Alanine Aminotransferase 41 U/L (0-41); Albumin Level 4.4 g/dL (3.5-5.2); Alkaline Phosphatase 48 U/L (40-130); Anion Gap 14.4 (5-19); Aspartate Amino Transferase 24 U/L (0-40); Blood Urea Nitrogen 13 mg/dL (6-20); Calcium 9.5 mg/dL (8.5-10.5); Carbon Dioxide 23 mmol/L (22-29); Chloride 106 mmol/L (98-107); Chol HDL Ratio 5.94 mg/dL (1.0-5.00); Cholesterol 184 mg/dL (0-200); Ferritin 61 ng/mL (30-400); Globulin 2.9 g/dL (1.3-4.6); Glomerular Filtration Rate 57.7 mL/min (90-130); Glucose 88 mg/dL (65-115); HDL Cholesterol 31 mg/dL (60-100); Iron 86 ug/dL (59-158); LDL Cholesterol Calculated 128 mg/dL (50-129); LDL HDL Ratio 4.13 RATIO (0.00-3.22); Osmolality Calculated 288 mOsm/kg (285-295); Percent Saturation 27.2 % (20-50); Potassium 4.4 mmol/L (3.5-5.1); Sodium 139 mmol/L (136-145); Thyroid Stimulating Hormone 1.53 uIU/mL (0.27-4.20); Total Bilirubin 0.7 mg/dL (0.15-1.2); Total Iron Binding Capacity 316 mcg/dl; Total Protein 7.3 g/dL (6.6-8.7); Triglycerides 123 mg/dL (0-150); Unsaturated Iron Binding 230 ug/dL (112-347)
[2023-08-24 13:53] LABS: Free T4 Free Thyroxine 1.49 ng/dL (0.82-1.77)
[2023-08-24 14:26] LABS: Creatinine Urine, Random 107 mg/dL (39-259); Microalbum Creatinine Ratio Ur 9 mg/dL (0-20); Microalbumin Random Urine 1 ug/dL (0-20)
[2023-08-24 14:59] VITALS: BP 110/84; PULSE 103; RESP 16; TEMP 36.6; O2SAT 98
== END 2023-09-17 23:59 | disposition home or self-care (01) ==
PROVIDERS: Internal Medicine; PCP Nurse Practitioner Family; Visit Provider Internal Medicine Medical Oncology
DX: R63.5 Abnormal weight gain (principal); E23.7 Disorder of pituitary gland, unspecified; E78.2 Mixed hyperlipidemia; D75.1 Secondary polycythemia; E83.110 Hereditary hemochromatosis
CPT/HCPCS: 36415; 80053; 80061; 82044; 82306; 82728; 83036; 83540; 83550; 84439; 84443; 85025; 99195

== ENCOUNTER 2023-10-11 10:26 | Oncology outpatient (recurring) (ONCR) | payer OTHER, SELFPAY ==
[2023-10-11 11:19] LABS: Basophils % 0.6 %; Eosinophils # 0.1 10^3/uL (0.0-0.8); Eosinophils % 1.9 %; Hematocrit 51.1 % (37-53); Lymphocytes # 2.1 10^3/uL (0.8-4.8); Mean Corpuscular HGB Conc 34.1 g/dL (30-55); Mean Corpuscular Hemoglobin 29.7 pg (27-33); Mean Corpuscular Volume 87.2 fl (82-101); Mean Platelet Volume 9.2 fL (7.4-10.4); Monocytes # 0.3 10^3/uL (0.2-0.9); Monocytes % 6.5 %; Neutrophils # 2.72 10^3/uL (1.8-7.7); Neutrophils % 51.8 %; Nucleated Red Blood Cells % 0 %; Platelet Count 165 10^3/cmm (157-399); Red Blood Count 5.86 10^6/uL (3.85-5.65); Red Cell Distribution Width 12.9 % (12.1-15.1); White Blood Count 5.25 10^3/uL (3.29-11.43)
[2023-10-11 13:37] VITALS: BP 118/76; PULSE 76; RESP 16; TEMP 36.3; O2SAT 97
== END 2023-10-17 23:59 | disposition home or self-care (01) ==
LOC: ONCMED 10:26
PROVIDERS: Nurse Practitioner Family; PCP Nurse Practitioner Family; Visit Provider Internal Medicine Medical Oncology
DX: D75.1 Secondary polycythemia (principal)
CPT/HCPCS: 36415; 85025; 99195

== ENCOUNTER 2023-12-26 14:27 | Oncology outpatient (recurring) (ONCR) | payer OTHER, SELFPAY ==
[2023-12-26 15:05] LABS: Basophils % 0.4 %; Eosinophils # 0.1 10^3/uL (0.0-0.8); Eosinophils % 2.1 %; Hematocrit 48.5 % (37-53); Lymphocytes # 2.3 10^3/uL (0.8-4.8); Lymphocytes % 43.7 %; Mean Corpuscular HGB Conc 34.2 g/dL (30-55); Mean Corpuscular Hemoglobin 29.5 pg (27-33); Mean Corpuscular Volume 86.3 fl (82-101); Mean Platelet Volume 9.6 fL (7.4-10.4); Monocytes # 0.3 10^3/uL (0.2-0.9); Neutrophils # 2.46 10^3/uL (1.8-7.7); Neutrophils % 47.4 %; Nucleated Red Blood Cells % 0 %; Platelet Count 181 10^3/cmm (157-399); Red Blood Count 5.62 10^6/uL (3.85-5.65); Red Cell Distribution Width 12.3 % (12.1-15.1); White Blood Count 5.19 10^3/uL (3.29-11.43)
[2023-12-26 15:31] LABS: Creatinine Urine, Random 106 mg/dL (39-259); Microalbum Creatinine Ratio Ur 9 mg/dL (0-20); Microalbumin Random Urine 1 ug/dL (0-20)
[2023-12-26 15:39] LABS: 25 Hydroxy Vitamin D 18 ng/mL (30-100); Alanine Aminotransferase 38 U/L (0-41); Albumin Level 4.2 g/dL (3.5-5.2); Alkaline Phosphatase 52 U/L (40-130); Anion Gap 14.1 (5-19); Aspartate Amino Transferase 23 U/L (0-40); Blood Urea Nitrogen 17 mg/dL (6-20); Calcium 9.1 mg/dL (8.5-10.5); Carbon Dioxide 25 mmol/L (22-29); Chloride 104 mmol/L (98-107); Chol HDL Ratio 6.16 mg/dL (1.0-5.00); Cholesterol 154 mg/dL (0-200); Ferritin 70 ng/mL (30-400); Globulin 2.7 g/dL (1.3-4.6); Glomerular Filtration Rate 68.9 mL/min (90-130); Glucose 113 mg/dL (65-115); HDL Cholesterol 25 mg/dL (60-100); Iron 80 ug/dL (59-158); LDL Cholesterol Calculated 66 mg/dL (50-129); LDL HDL Ratio 2.64 RATIO (0.00-3.22); Osmolality Calculated 290 mOsm/kg (285-295); Percent Saturation 28.8 % (20-50); Potassium 4.1 mmol/L (3.5-5.1); Prostate Specific Antigen Scr 1.02 ng/mL (0-4); Sodium 139 mmol/L (136-145); Thyroid Stimulating Hormone 1.74 uIU/mL (0.27-4.20); Total Bilirubin 0.3 mg/dL (0.15-1.2); Total Iron Binding Capacity 277 mcg/dl; Total Protein 6.9 g/dL (6.6-8.7); Triglycerides 315 mg/dL (0-150); Unsaturated Iron Binding 197 ug/dL (112-347)
[2023-12-26 15:42] LABS: Estmated Average Glucose 103; Hemoglobin A1C 5.2 % (4.0-6.0)
[2023-12-26 16:12] LABS: Free T4 Free Thyroxine 1.54 ng/dL (0.82-1.77); Testosterone Total 533.8 ng/dL (249-836)
[2023-12-26 16:45] VITALS: BP 135/78; PULSE 95; RESP 20; TEMP 36.5; O2SAT 95
[2023-12-28 12:55] LABS: Immunoglobulin A 142 mg/dL (47-310)
[2023-12-29 03:25] LABS: Gliadin Ab.IgA 1.1 U/mL; Gliadin Ab.IgG <1.0 U/mL
[2023-12-29 03:33] LABS: Tissue Transglutaminase IgA Ab <1.0 U/mL; Tissue transglutaminase Ab.IgG <1.0 U/mL
== END 2024-01-17 23:59 | disposition home or self-care (01) ==
PROVIDERS: Internal Medicine; Nurse Practitioner Family; PCP Nurse Practitioner Family; Visit Provider Internal Medicine Medical Oncology
DX: D75.1 Secondary polycythemia (principal); E83.110 Hereditary hemochromatosis; E23.7 Disorder of pituitary gland, unspecified; E78.2 Mixed hyperlipidemia; E11.9 Type 2 diabetes mellitus without complications; Z98.890 Other specified postprocedural states
CPT/HCPCS: 36415; 80053; 80061; 82044; 82306; 82728; 82784; 83036; 83516; 83540; 83550; 84403; 84439; 84443; 85025; 99195; G0103

== ENCOUNTER 2024-04-01 07:50 | Oncology outpatient (recurring) (ONCR) | payer OTHER, SELFPAY ==
[2024-04-01 08:32] LABS: Basophils % 0.8 %; Eosinophils # 0.2 10^3/uL (0.0-0.8); Eosinophils % 3.1 %; Lymphocytes # 2.4 10^3/uL (0.8-4.8); Lymphocytes % 47.2 %; Mean Corpuscular Hemoglobin 30.2 pg (27-33); Mean Corpuscular Volume 88.8 fl (82-101); Mean Platelet Volume 9.4 fL (7.4-10.4); Monocytes # 0.3 10^3/uL (0.2-0.9); Monocytes % 6.5 %; Neutrophils # 2.16 10^3/uL (1.8-7.7); Neutrophils % 42.2 %; Nucleated Red Blood Cells % 0 %; Platelet Count 190 10^3/cmm (157-399); Red Blood Count 5.63 10^6/uL (3.85-5.65); Red Cell Distribution Width 12.9 % (12.1-15.1); White Blood Count 5.11 10^3/uL (3.29-11.43)
[2024-04-01 08:49] LABS: Alanine Aminotransferase 49 U/L (0-41); Albumin Level 4.2 g/dL (3.5-5.2); Alkaline Phosphatase 53 U/L (40-130); Anion Gap 13.8 (5-19); Aspartate Amino Transferase 23 U/L (0-40); Blood Urea Nitrogen 24 mg/dL (6-20); Carbon Dioxide 23 mmol/L (22-29); Chloride 106 mmol/L (98-107); Ferritin 130 ng/mL (30-400); Globulin 2.7 g/dL (1.3-4.6); Glomerular Filtration Rate 49.4 mL/min (90-130); Glucose 105 mg/dL (65-115); Iron 71 ug/dL (59-158); Osmolality Calculated 292 mOsm/kg (285-295); Percent Saturation 22.9 % (20-50); Potassium 3.8 mmol/L (3.5-5.1); Sodium 139 mmol/L (136-145); Total Bilirubin 0.4 mg/dL (0.15-1.2); Total Iron Binding Capacity 309 mcg/dl; Total Protein 6.9 g/dL (6.6-8.7); Unsaturated Iron Binding 238 ug/dL (112-347)
[2024-04-01 09:05] LABS: 25 Hydroxy Vitamin D 25 ng/mL (30-100)
[2024-04-01 09:31] LABS: Testosterone Total 76.4 ng/dL (249-836)
== END 2024-04-18 23:59 | disposition home or self-care (01) ==
PROVIDERS: Nurse Practitioner Family; PCP Nurse Practitioner Family; Visit Provider Internal Medicine Hematology & Oncology
DX: E83.110 Hereditary hemochromatosis (principal); D75.1 Secondary polycythemia; R63.5 Abnormal weight gain; E23.7 Disorder of pituitary gland, unspecified; E78.2 Mixed hyperlipidemia; R79.89 Other specified abnormal findings of blood chemistry
CPT/HCPCS: 36415; 80053; 82306; 82728; 83540; 83550; 84403; 85025; 99195

== ENCOUNTER 2024-05-13 07:46 | Oncology outpatient (recurring) (ONCR) | payer OTHER, SELFPAY ==
[2024-05-13 08:58] LABS: Basophils % 0.5 %; Eosinophils # 0.1 10^3/uL (0.0-0.8); Eosinophils % 2.4 %; Hematocrit 52.5 % (37-53); Lymphocytes # 1.9 10^3/uL (0.8-4.8); Mean Corpuscular HGB Conc 32.4 g/dL (30-55); Mean Corpuscular Hemoglobin 27.8 pg (27-33); Mean Corpuscular Volume 85.8 fl (82-101); Mean Platelet Volume 9.5 fL (7.4-10.4); Monocytes # 0.4 10^3/uL (0.2-0.9); Monocytes % 11.6 %; Neutrophils % 35.2 %; Nucleated Red Blood Cells % 0 %; Platelet Count 207 10^3/cmm (157-399); Red Blood Count 6.12 10^6/uL (3.85-5.65); Red Cell Distribution Width 12.3 % (12.1-15.1)
[2024-05-13 09:10] LABS: Alanine Aminotransferase 70 U/L (0-41); Albumin Level 4.1 g/dL (3.5-5.2); Alkaline Phosphatase 43 U/L (40-130); Anion Gap 13.9 (5-19); Aspartate Amino Transferase 33 U/L (0-40); Blood Urea Nitrogen 16 mg/dL (6-20); Calcium 9.4 mg/dL (8.5-10.5); Carbon Dioxide 25 mmol/L (22-29); Chloride 100 mmol/L (98-107); Creatinine Clr Calc Pharmacy 116.2211; Ferritin 87 ng/mL (30-400); Globulin 2.8 g/dL (1.3-4.6); Glomerular Filtration Rate 62.8 mL/min (90-130); Glucose 105 mg/dL (65-115); Iron 84 ug/dL (59-158); Lactate Dehydrogenase 136 U/L (135-225); Osmolality Calculated 282 mOsm/kg (285-295); Percent Saturation 30.8 % (20-50); Potassium 3.9 mmol/L (3.5-5.1); Sodium 135 mmol/L (136-145); Total Bilirubin 0.7 mg/dL (0.15-1.2); Total Iron Binding Capacity 272 mcg/dl; Total Protein 6.9 g/dL (6.6-8.7); Unsaturated Iron Binding 188 ug/dL (112-347)
[2024-05-18 13:48] LABS: Soluble Transferrin Receptor 2.52 mg/L (0.76-1.76)
== END 2024-05-18 23:59 | disposition home or self-care (01) ==
PROVIDERS: PCP Nurse Practitioner Family; Visit Provider Internal Medicine Hematology & Oncology
DX: E83.110 Hereditary hemochromatosis (principal); Z79.899 Other long term (current) drug therapy
CPT/HCPCS: 36415; 80053; 82728; 83540; 83550; 83615; 84238; 85025; 99195

== ENCOUNTER 2024-06-10 08:21 | Oncology outpatient (recurring) (ONCR) | payer SELFPAY ==
[2024-06-10 08:49] LABS: Basophils % 0.6 %; Eosinophils # 0.1 10^3/uL (0.0-0.8); Eosinophils % 2.2 %; Hematocrit 49.5 % (37-53); Lymphocytes # 2.3 10^3/uL (0.8-4.8); Mean Corpuscular HGB Conc 33.7 g/dL (30-55); Mean Corpuscular Hemoglobin 28.1 pg (27-33); Mean Corpuscular Volume 83.2 fl (82-101); Monocytes # 0.4 10^3/uL (0.2-0.9); Monocytes % 8.6 %; Neutrophils # 2.07 10^3/uL (1.8-7.7); Neutrophils % 42.4 %; Nucleated Red Blood Cells % 0 %; Platelet Count 210 10^3/cmm (157-399); Red Blood Count 5.95 10^6/uL (3.85-5.65); White Blood Count 4.89 10^3/uL (3.29-11.43)
[2024-06-10 09:06] LABS: Alanine Aminotransferase 57 U/L (0-41); Alkaline Phosphatase 65 U/L (40-130); Aspartate Amino Transferase 27 U/L (0-40); Blood Urea Nitrogen 15 mg/dL (6-20); Calcium 9.1 mg/dL (8.5-10.5); Carbon Dioxide 21 mmol/L (22-29); Chloride 107 mmol/L (98-107); Chol HDL Ratio 6.38 mg/dL (1.0-5.00); Cholesterol 153 mg/dL (0-200); Creatinine Clr Calc Pharmacy 115.8141; Globulin 2.6 g/dL (1.3-4.6); Glomerular Filtration Rate 62.8 mL/min (90-130); Glucose 107 mg/dL (65-115); HDL Cholesterol 24 mg/dL (60-100); LDL Cholesterol Calculated 74 mg/dL (50-129); LDL HDL Ratio 3.08 RATIO (0.00-3.22); Osmolality Calculated 291 mOsm/kg (285-295); Sodium 140 mmol/L (136-145); Total Bilirubin 0.5 mg/dL (0.15-1.2); Total Protein 6.6 g/dL (6.6-8.7); Triglycerides 277 mg/dL (0-150)
[2024-06-10 09:13] LABS: Testosterone Total 671.2 ng/dL (249-836)
[2024-06-10 09:28] LABS: Ferritin 58 ng/mL (30-400); Iron 83 ug/dL (59-158); Percent Saturation 28.3 % (20-50); Total Iron Binding Capacity 293 mcg/dl; Unsaturated Iron Binding 210 ug/dL (112-347)
[2024-06-10 09:41] LABS: 25 Hydroxy Vitamin D 29 ng/mL (30-100)
== END 2024-06-18 23:59 | disposition home or self-care (01) ==
PROVIDERS: PCP Nurse Practitioner Family; Visit Provider Internal Medicine Medical Oncology
DX: E78.2 Mixed hyperlipidemia; D75.1 Secondary polycythemia
CPT/HCPCS: 36415; 80053; 80061; 82306; 82728; 83540; 83550; 84403; 85025; 99195

== ENCOUNTER 2024-07-08 09:45 | Oncology outpatient (recurring) (ONCR) | payer BC, SELFPAY ==
--- NOTE | 2024-07-08 11:00 | US_ITS ---
WS: [id number] Complete ABDOMINAL ULTRASOUND HISTORY: hereditary hemochromatosis COMPARISON: None available. Liver: 14.9 cm in length. Poorly visualized liver due to poor acoustic windows. No mass or abnormalit y is identified. Portal Vein: Normal hepatopetal flow with monophasic waveform. Gallbladder: Normally distended gallbladder with no stones or wall thickening. CBD: 0.6 cm Pancreas: The body is normal. Head and tail are obscured by bowel gas. Right kidney: 10.2 cm x 5.8 x 5.0 cm. Cortex:1.0 cm. Normal size and echogenicity. No hydronephrosis or mass. Left kidney: 11.9 cm x 4.6 cm x 4.3 cm. Cortex: 1.1 cm. Normal size and echogenicity. No hydronephrosis or mass. Spleen: 10.4 cm. Normal size and echogenicity. Aorta and IVC: Unremarkable abdominal aorta and IVC. US/US abdomen complete* [id number] Impression: 1. Normal gallbladder. 2. Technically limited by body habitus. 3. Poorly visualized liver but no abnormality identified. 4. No renal obstruction.
[2024-07-08 11:02] LABS: Basophils % 0.6 %; Eosinophils # 0.1 10^3/uL (0.0-0.8); Eosinophils % 2.2 %; Hematocrit 49.5 % (37-53); Lymphocytes # 2.5 10^3/uL (0.8-4.8); Lymphocytes % 48.7 %; Mean Corpuscular HGB Conc 32.7 g/dL (30-55); Mean Corpuscular Hemoglobin 26.9 pg (27-33); Mean Corpuscular Volume 82.1 fl (82-101); Mean Platelet Volume 9.6 fL (7.4-10.4); Monocytes # 0.3 10^3/uL (0.2-0.9); Monocytes % 5.4 %; Neutrophils # 2.16 10^3/uL (1.8-7.7); Neutrophils % 42.9 %; Nucleated Red Blood Cells % 0 %; Platelet Count 196 10^3/cmm (157-399); Red Blood Count 6.03 10^6/uL (3.85-5.65); Red Cell Distribution Width 12.6 % (12.1-15.1); White Blood Count 5.03 10^3/uL (3.29-11.43)
[2024-07-08 11:12] LABS: Alanine Aminotransferase 46 U/L (0-41); Albumin Level 4.1 g/dL (3.5-5.2); Alkaline Phosphatase 59 U/L (40-130); Anion Gap 16.2 (5-19); Aspartate Amino Transferase 24 U/L (0-40); Blood Urea Nitrogen 14 mg/dL (6-20); Calcium 9.3 mg/dL (8.5-10.5); Carbon Dioxide 22 mmol/L (22-29); Chloride 103 mmol/L (98-107); Cholesterol 156 mg/dL (0-200); Ferritin 39 ng/mL (30-400); Globulin 2.6 g/dL (1.3-4.6); Glomerular Filtration Rate 68.5 mL/min (90-130); Glucose 103 mg/dL (65-115); HDL Cholesterol 26 mg/dL (60-100); LDL Cholesterol Calculated 104 mg/dL (50-129); Osmolality Calculated 285 mOsm/kg (285-295); Potassium 4.2 mmol/L (3.5-5.1); Sodium 137 mmol/L (136-145); Total Bilirubin 0.3 mg/dL (0.15-1.2); Total Protein 6.7 g/dL (6.6-8.7); Triglycerides 132 mg/dL (0-150)
[2024-07-08 11:28] LABS: 25 Hydroxy Vitamin D 46 ng/mL (30-100)
[2024-07-08 11:33] LABS: Estmated Average Glucose 94; Hemoglobin A1C 4.9 % (4.0-6.0)
[2024-07-08 11:37] LABS: Creatinine Urine, Random 212 mg/dL (39-259); Microalbum Creatinine Ratio Ur 5 mg/dL (0-20); Microalbumin Random Urine 1 ug/dL (0-20)
[2024-07-08 11:46] LABS: Testosterone Total 990.3 ng/dL (249-836); Tumor Marker Alpha Fetoprotein 2.1 ng/mL (0-8.3)
== END 2024-07-19 23:59 | disposition home or self-care (01) ==
LOC: ONCMED 09:45
PROVIDERS: Internal Medicine; PCP Nurse Practitioner Family; Visit Provider Internal Medicine Medical Oncology
DX: E78.2 Mixed hyperlipidemia (principal); D75.1 Secondary polycythemia; E83.110 Hereditary hemochromatosis
CPT/HCPCS: 76700; 80053; 80061; 82044; 82105; 82306; 82728; 83036; 84403; 85025

== ENCOUNTER 2024-08-16 08:44 | Oncology outpatient (recurring) (ONCR) | payer BC, SELFPAY ==
[2024-08-16 09:31] LABS: Basophils % 0.3 %; Eosinophils # 0.2 10^3/uL (0.0-0.8); Eosinophils % 3.1 %; Hematocrit 51.3 % (37-53); Lymphocytes # 2.5 10^3/uL (0.8-4.8); Lymphocytes % 40.4 %; Mean Corpuscular HGB Conc 33.5 g/dL (30-55); Mean Corpuscular Hemoglobin 26.6 pg (27-33); Mean Corpuscular Volume 79.4 fl (82-101); Mean Platelet Volume 9.1 fL (7.4-10.4); Monocytes # 0.4 10^3/uL (0.2-0.9); Monocytes % 6.4 %; Neutrophils # 3.03 10^3/uL (1.8-7.7); Neutrophils % 49.6 %; Nucleated Red Blood Cells % 0 %; Platelet Count 190 10^3/cmm (157-399); Red Blood Count 6.46 10^6/uL (3.85-5.65); Red Cell Distribution Width 13.7 % (12.1-15.1); White Blood Count 6.11 10^3/uL (3.29-11.43)
[2024-08-16 09:47] LABS: Alanine Aminotransferase 46 U/L (0-41); Albumin Level 4.4 g/dL (3.5-5.2); Alkaline Phosphatase 70 U/L (40-130); Anion Gap 14.3 (5-19); Aspartate Amino Transferase 21 U/L (0-40); Blood Urea Nitrogen 16 mg/dL (6-20); Calcium 9.6 mg/dL (8.5-10.5); Carbon Dioxide 27 mmol/L (22-29); Chloride 104 mmol/L (98-107); Ferritin 51 ng/mL (30-400); Globulin 2.5 g/dL (1.3-4.6); Glomerular Filtration Rate 75.7 mL/min (90-130); Glucose 102 mg/dL (65-115); Osmolality Calculated 293 mOsm/kg (285-295); Potassium 4.3 mmol/L (3.5-5.1); Sodium 141 mmol/L (136-145); Total Bilirubin 0.6 mg/dL (0.15-1.2); Total Protein 6.9 g/dL (6.6-8.7)
[2024-08-16 10:19] LABS: Tumor Marker Alpha Fetoprotein 2.6 ng/mL (0-8.3)
== END 2024-08-16 23:59 | disposition home or self-care (01) ==
PROVIDERS: PCP Nurse Practitioner Family; Visit Provider Internal Medicine Medical Oncology
DX: Z53.9 Procedure and treatment not carried out, unspecified reason (principal); E83.110 Hereditary hemochromatosis
CPT/HCPCS: 36415; 80053; 82105; 82728; 85025; 99195